=== PATIENT | male | born 1960 | race Caucasian/White ===

== ENCOUNTER 2021-11-11 14:15 | Outpatient (RCR) | payer BC | END 2021-11-29 | disposition still patient (30) | LOC: MKS.ESL.PT | DX: H81.09 Meniere's disease, unspecified ear (principal) ==

== ENCOUNTER → 2022-01-29 13:03 | Outpatient (RCR) | payer BC | END | disposition home or self-care (01) | LOC: MKS.ESL.PT 11-30 14:15 | DX: H81.09 Meniere's disease, unspecified ear (principal) ==